=== PATIENT | female | born 1955 | race Caucasian/White ===

== ENCOUNTER → 2016-09-01 | Outpatient (CLI) | payer BC ==
[~2016-09-01] MED LIST: ANTIVERT 25MG25 MG PO; CALCIUM CARBONATE; CALCIUM CARBONATE PO; EXFORGE 5/160 PO; EXFORGE PO; FOLIC ACID 40400 MCG PO; HYZAAR 25 MG-101 TAB PO; IRON325 M1 PO; JANUVIA 100MG100 MG PO; LIPITOR20 MG PO; MAXZIDE PO; NORVASC 5MG5 MG/TAB PO; POTASSIUM CITRATE; POTASSIUM CITRATE PO; POTASSIUM CL 220 MEQ PO; SYNTHROID 0.10.15 MG PO; SYNTHROID0.137 MG PO; TOPROL XL50 MG PO; TRIAMTERENE AND1 TA1 PO; TRIAMTERENE PO; UROCIT PO; UROCIT-K 1010 MEQ PO; VITAMIN D2000 I1 PO; [UNRECOGNIZED DRUG - OTHER] TP
== END ==
LOC: MC.RAD 09:51
DX: Z12.31 Encounter for screening mammogram for malignant neoplasm of breast (principal)

== ENCOUNTER → 2017-09-20 | Outpatient (CLI) | payer BC | LOC: MC.RAD 09:15 | DX: Z12.31 Encounter for screening mammogram for malignant neoplasm of breast (principal) ==

== ENCOUNTER → 2018-09-22 | Outpatient (CLI) | payer BC | LOC: MC.RAD 13:16 | DX: Z12.31 Encounter for screening mammogram for malignant neoplasm of breast (principal) ==

== ENCOUNTER → 2019-11-17 | Outpatient (CLI) | payer BC | LOC: COL.RAD 11:55 | DX: R79.89 Other specified abnormal findings of blood chemistry (principal) ==

== ENCOUNTER → 2020-09-23 | Outpatient (CLI) | payer BC ==
[~2020-09-23] MED LIST changes: +LOPRESSOR 550 MG/TAB PO
== END ==
LOC: MC.RAD 14:15
DX: Z12.31 Encounter for screening mammogram for malignant neoplasm of breast (principal)

== ENCOUNTER 2020-09-27 06:35 | Observation (INO) | payer BC ==
[2020-09-27] VITALS (13 sets, daily range): BP systolic 125–152; BP diastolic 43–74; PULSE 50–75; TEMP 98–98.9
[~2020-09-27] VITALS: Ht 157.5 cm; Wt 84.6 kg
[~2020-09-27 06:35] MED LIST changes: -LOPRESSOR 550 MG/TAB PO
[2020-09-27 07:18] LABS: COLLECTION METHOD CLEAN CATCH
[2020-09-27 07:56] LABS: BASO # 0.1 (0.0-0.2); BASO % 0.8 % (0.0-2.0); EOS # 0.4 (0.0-0.7); EOS % 5.3 % (0-4.0); GRAN # 6.3 (1.4-6.5); GRAN % 82.2 % (42.2-75.2); HEMATOCRIT 45.2 % (37.0-47.0); HEMOGLOBIN 14.3 g/dl (12.5-16.0); LYMPH # 0.6 (1.2-3.4); LYMPH % 8.3 % (20.0-51.0); MEAN CELL VOLUME 96 fl (80.0-100.0); MEAN CORPUSCULAR HEMOGLOBIN 30 pg (27.0-31.0); MEAN CORPUSCULAR HGB CONC 32 g/dl (33.0-37.0); MEAN PLATELET VOLUME 11.8 fl (7.4-10.4); MONO # 0.2 (0.1-0.6); MONO % 3.1 % (1.7-9.3); PLATELET COUNT 165 K/mm3 (130-400); RED BLOOD COUNT 4.72 M/mm3 (4.10-5.30); REDCELL DISTRIBUTION WIDTH-CV 12.9 % (11.5-14.5)
[2020-09-27 08:04] LABS: PH 6 (5-8); URINE APPEARANCE Cloudy; URINE BACTERIA None Seen /hpf; URINE BILIRUBIN Negative (NEGATIVE); URINE BLOOD 3+ (NEGATIVE); URINE COLOR Yellow; URINE GLUCOSE Negative (NEGATIVE); URINE KETONE Trace (NEGATIVE); URINE LEUKOCYTE ESTERASE Trace (NEGATIVE); URINE NITRATE Negative (NEGATIVE); URINE PROTEIN(semi-quant) 2+ (NEGATIVE); URINE RBC >50 /hpf; URINE UROBILINOGEN Negative (NEGATIVE)
[2020-09-27 08:06] LABS: ALBUMIN 3.8 gm/dL (3.5-5.0); BILIRUBIN,TOTAL 0.7 mg/dL (0.0-1.0); CALCIUM 10.1 mg/dL (8.4-10.2); CREATININE, serum 1.13 (0.52-1.25); POTASSIUM 4.5 mmol/L (3.4-5.0); TOTAL PROTEIN 7.2 gm/dL (6.4-8.2)
--- NOTE | 2020-09-27 10:30 | NUR ---
Patient up to room by wheelchair from ER. Alert and oriented x 3. Assessment complete. Spouse at bedside. Oriented to room. Denies furhter needs at this time.
[2020-09-27] MEDS ORDERED: LOPRESSOR 550 MG/TAB PO (10:58)
--- NOTE | 2020-09-27 11:01 | NUR ---
Dr. Colon in to see patient.
--- NOTE | 2020-09-27 16:14 | NUR ---
Patient to OR by bed.
--- NOTE | 2020-09-27 19:15 | NUR ---
Pt at bedside. Pt was assisted to the bathroom. Pt did voided and her urrine was red tinged. Pt stated that she doesn't have any pain at this time. Pt has tolerated ice chips and water well. Pt is currently back in bed and has her call light within reach. Pt's stated that he will be heading home and will be back in the morning.
--- NOTE | 2020-09-28 01:00 | NUR ---
Pt has been to the bathroom a couple of times. Pt did very well. Pt still has fluids infusing at this time. 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 Pt has not complained of any pain at this time. Pt has ate one cup of jello and stated that she was fine with this, she said she didn't want anything else to eat right now. Pt has her call light within reach.
[2020-09-28 03:25] VITALS: BP 103/40; PULSE 60; TEMP 98.2
--- NOTE | 2020-09-28 04:04 | NUR ---
Pt has been voiding well pt urine color is closer to a peach color. Pt statd that she did feel a little buring when she voided but felt that she didn't need anything for pain at this time. Pt has her call light within reach.
--- NOTE | 2020-09-28 06:26 | NUR ---
Pt urine looks way better this morning. Pt urine is peach colored. Pt has her call light within reach.
[2020-09-28 07:32] VITALS: BP 136/63; PULSE 51; TEMP 98.3
[2020-09-28 08:48] VITALS: PULSE 63
--- NOTE | 2020-09-28 08:55 | NUR ---
Pt is alert and oriented x3. Heart tones are present and normal, no murmur noted. Lung sounds are clear in all lobes upon auscultation. No complaints at this time.
--- NOTE | 2020-09-28 10:27 | NUR ---
SW met with patient to conduct intake evaluation. Patient lives at home in [place] with Dipesh (P# [phone]). Patient's DPOA is primarily her Dipesh. First alt agency is son [employer] (P# [phone]). Second alt i daughter Kalie Lazaro (P# [phone]). Patient's PCP is Dr. Yoana Carrero and she uses [facility] for medications. Patient requires no assistance with ADLs and uses no DME. Patient denies needing assistance with medications. Patient plans to return home with upon discharge. Patient will discharge home today 09/28 with Dipesh, who is in her room and will provide transportation. There are no new needs at this time.
--- NOTE | 2020-09-28 11:15 | NUR ---
Discharge education provided to patient. Educated on when to call provider and scheduling follow up appointments. All questions answered. Family at bedside. INT discontinued by RN student. Patient out by wheelchair with family and surgical staff.
== END 2020-09-28 11:15 | disposition home or self-care (01) ==
LOC: COL.ER 06:35 → SURG 09:10 → EDBEDREQ 09:31 → SURG 09-28 11:15
PROVIDERS: Emergency Medicine; ADMIT Urology
DX: N20.1 Calculus of ureter (principal); Q60.0 Renal agenesis, unilateral; Z90.710 Acquired absence of both cervix and uterus; Z90.722 Acquired absence of ovaries, bilateral; Z90.49 Acquired absence of other specified parts of digestive tract; I10 Essential (primary) hypertension; M19.90 Unspecified osteoarthritis, unspecified site; E11.9 Type 2 diabetes mellitus without complications
CPT/HCPCS: C1769; C1894; C2617; G0378; J0690; J2405; J2704; J3010; J7030; Q9967